=== PATIENT | male | born 1945 | race Caucasian/White ===

== ENCOUNTER → 2016-10-30 | Outpatient (REF) | payer MEDICARE, OTHER ==
[2016-10-30 14:03] LABS: MEAN CORPUSCULAR HEMOGLOBIN 29.1 pg (27.0-33.0); MEAN CORPUSCULAR HGB CONC 34.3 g/dl (32.0-36.5); MEAN CORPUSCULAR VOLUME 84.8 fl (80.0-96.0); RED CELL DISTRIBUTION WIDTH 12.5 % (11.5-14.5); WHITE BLOOD COUNT 4.8 K/mm3 (4.0-10.0)
[2016-10-30 14:19] LABS: ALBUMIN 3.9 GM/DL (3.2-5.2); ALKALINE PHOSPHATASE 86 U/L (45-117); ALT/SGPT 25 U/L (12-78); ANION GAP 7 MEQ/L (8-16); AST/SGOT 20 U/L (15-37); BILIRUBIN,TOTAL 0.6 MG/DL (0.2-1.0); BLOOD UREA NITROGEN 18 MG/DL (7-18); CALCIUM LEVEL 9.3 MG/DL (8.8-10.2); CARBON DIOXIDE LEVEL 30 MEQ/L (21-32); CHLORIDE LEVEL 104 MEQ/L (98-107); CHOLESTEROL LEVEL 162 MG/DL (<200); CREATININE FOR GFR 0.98 MG/DL (0.70-1.30); GLOMERULAR FILTRATION RATE > 60.0 (>42); GLUCOSE, FASTING 103 MG/DL (83-110); POTASSIUM SERUM 4.6 MEQ/L (3.5-5.1); SODIUM LEVEL 141 MEQ/L (136-145); TOTAL PROTEIN 6.9 GM/DL (6.4-8.2); TRIGLYCERIDES LEVEL 100 MG/DL (<150)
== END ==
LOC: M LABDRAW1 12:26
PROVIDERS: ATTEND Internal Medicine
DX: R73.01 Impaired fasting glucose (principal); I10 Essential (primary) hypertension; E78.00 Pure hypercholesterolemia, unspecified

== ENCOUNTER → 2018-11-17 | Outpatient (CLI) | payer MEDICARE, OTHER ==
[2018-11-17 08:59] LABS: HEMATOCRIT 44.7 % (42.0-52.0); MEAN CORPUSCULAR HEMOGLOBIN 28.9 pg (27.0-33.0); MEAN CORPUSCULAR HGB CONC 33.6 g/dl (32.0-36.5); MEAN CORPUSCULAR VOLUME 86.1 fl (80.0-96.0); PLATELET COUNT, AUTOMATED 248 10^3/uL (150-450); RED BLOOD COUNT 5.19 10^6/uL (4.30-6.10); WHITE BLOOD COUNT 6.3 10^3/uL (4.0-10.0)
[2018-11-17 09:29] LABS: ALT/SGPT 22 U/L (12-78); BILIRUBIN,TOTAL 0.8 MG/DL (0.2-1.0); BLOOD UREA NITROGEN 17 MG/DL (7-18); CALCIUM LEVEL 9.9 MG/DL (8.8-10.2); CARBON DIOXIDE LEVEL 30 MEQ/L (21-32); CHLORIDE LEVEL 106 MEQ/L (98-107); CHOLESTEROL LEVEL 163 MG/DL (<200); CHOLESTEROL RISK RATIO 3.468 (<5); GLOMERULAR FILTRATION RATE > 60.0 (>42); GLUCOSE, FASTING 109 MG/DL (70-100); HDL CHOLESTEROL 47 MG/DL (>40); LDL CHOLESTEROL 96 MG/DL (<100); MAGNESIUM LEVEL 2.2 MG/DL (1.8-2.4); NON-HDL-C 116 MG/DL; POTASSIUM SERUM 5.2 MEQ/L (3.5-5.1); SODIUM LEVEL 141 MEQ/L (136-145); TOTAL PROTEIN 7.2 GM/DL (6.4-8.2); TRIGLYCERIDES LEVEL 101 MG/DL (<150)
[2018-11-17 15:01] LABS: HEMOGLOBIN A1c 5.9 %
== END ==
LOC: M WUC 08:08
PROVIDERS: ATTEND Internal Medicine
DX: I10 Essential (primary) hypertension (principal); E78.00 Pure hypercholesterolemia, unspecified; R73.01 Impaired fasting glucose; R74.8 Abnormal levels of other serum enzymes; G47.33 Obstructive sleep apnea (adult) (pediatric)

== ENCOUNTER → 2019-10-31 | Outpatient (CLI) | payer MEDICARE, OTHER ==
[2019-10-31 13:56] LABS: HEMATOCRIT 41.3 % (42.0-52.0); HEMOGLOBIN 13.9 g/dl (13.5-17.5); MEAN CORPUSCULAR HEMOGLOBIN 29.2 pg (27.0-33.0); MEAN CORPUSCULAR HGB CONC 33.7 g/dl (32.0-36.5); MEAN CORPUSCULAR VOLUME 86.8 fl (80.0-96.0); PLATELET COUNT, AUTOMATED 246 10^3/uL (150-450); RED BLOOD COUNT 4.76 10^6/uL (4.30-6.10); WHITE BLOOD COUNT 6.6 10^3/uL (4.0-10.0)
[2019-10-31 14:15] LABS: BLOOD UREA NITROGEN 18 MG/DL (7-18); CALCIUM LEVEL 9.3 MG/DL (8.8-10.2); CARBON DIOXIDE LEVEL 29 MEQ/L (21-32); CHLORIDE LEVEL 104 MEQ/L (98-107); CREATININE FOR GFR 0.96 MG/DL (0.70-1.30); GLOMERULAR FILTRATION RATE > 60.0 (>42); GLUCOSE, FASTING 77 MG/DL (70-100); POTASSIUM SERUM 4.7 MEQ/L (3.5-5.1); SODIUM LEVEL 139 MEQ/L (136-145)
== END ==
LOC: M WUC 10:10
PROVIDERS: ATTEND Physician Assistant
DX: I48.19 Other persistent atrial fibrillation (principal); Z79.899 Other long term (current) drug therapy

== ENCOUNTER → 2020-05-03 | Outpatient (CLI) | payer MEDICARE, OTHER ==
[2020-05-03 11:30] LABS: BASO % 0.3 % (0.0-1.0); HEMATOCRIT 44.7 % (42.0-52.0); HEMOGLOBIN 14.7 g/dl (13.5-17.5); LYMPH # 2.1 10^3/uL (1.5-5.0); LYMPH % 32.9 % (24.0-44.0); MEAN CORPUSCULAR HEMOGLOBIN 28.6 pg (27.0-33.0); MEAN CORPUSCULAR HGB CONC 32.9 g/dl (32.0-36.5); MONO # 0.7 10^3/uL (0.0-0.8); MONO % 10.1 % (2.0-8.0); NEUTROPHILS # 3.6 10^3/uL (1.5-8.5); NEUTROPHILS % 56.4 % (36.0-66.0); PLATELET COUNT, AUTOMATED 251 10^3/uL (150-450); RED BLOOD COUNT 5.14 10^6/uL (4.30-6.10); WHITE BLOOD COUNT 6.4 10^3/uL (4.0-10.0)
[2020-05-03 12:14] LABS: ALT/SGPT 25 U/L (12-78); BILIRUBIN,TOTAL 0.8 MG/DL (0.2-1.0); BLOOD UREA NITROGEN 20 MG/DL (7-18); CALCIUM LEVEL 9.7 MG/DL (8.8-10.2); CARBON DIOXIDE LEVEL 31 MEQ/L (21-32); CHLORIDE LEVEL 103 MEQ/L (98-107); CHOLESTEROL LEVEL 175 MG/DL (<200); CHOLESTEROL RISK RATIO 3.888 (<5); CREATININE FOR GFR 1.11 MG/DL (0.70-1.30); GLOMERULAR FILTRATION RATE > 60.0 (>42); GLUCOSE, FASTING 111 MG/DL (70-100); HDL CHOLESTEROL 45 MG/DL (>40); LDL CHOLESTEROL 104 MG/DL (<100); NON-HDL-C 130 MG/DL; POTASSIUM SERUM 4.6 MEQ/L (3.5-5.1); SODIUM LEVEL 139 MEQ/L (136-145); TOTAL PROTEIN 7.3 GM/DL (6.4-8.2); TRIGLYCERIDES LEVEL 129 MG/DL (<150)
== END ==
LOC: M WUC 08:10
PROVIDERS: ATTEND Physician Assistant
DX: I10 Essential (primary) hypertension (principal)

== ENCOUNTER → 2020-07-09 | Outpatient (REF) | payer MEDICARE, OTHER ==
[2020-07-09 15:04] LABS: APPEARANCE, URINE CLEAR (CLEAR); BACTERIA, URINE AUTO NEGATIVE (NEGATIVE); BILIRUBIN, URINE AUTO NEGATIVE (NEGATIVE); BLOOD, URINE BLOOD NEGATIVE (NEGATIVE); COLOR, URINE YELLOW (YELLOW); GLUCOSE, URINE (UA) AUTO NEGATIVE (NEGATIVE); KETONE, URINE AUTO NEGATIVE (NEGATIVE); LEUKOCYTE ESTERASE, URINE AUTO NEGATIVE (NEGATIVE); NITRITE, URINE AUTO NEGATIVE (NEGATIVE); PROTEIN, URINE AUTO NEGATIVE (NEGATIVE); RBC, URINE AUTO 0 /HPF (0-3); SPECIFIC GRAVITY URINE AUTO 1.014 (1.002-1.035); SQUAMOUS EPITHELIAL CELL UR AU 0 /HPF (0-6); UROBILINOGEN, URINE AUTO 0.2 mg/dL (0.0-2.0); WBC, URINE AUTO 0 /HPF (0-3)
== END ==
LOC: M SFHCPLAZ 13:44
PROVIDERS: ATTEND Internal Medicine
DX: R31.9 Hematuria, unspecified (principal); Z11.59 Encounter for screening for other viral diseases
CPT/HCPCS: 36415; 81001; G0463; G0472

== ENCOUNTER → 2021-07-02 | Outpatient (CLI) | payer MEDICARE, OTHER, BC ==
[2021-07-02 11:31] LABS: BASO % 0.1 % (0.0-1.0); HEMATOCRIT 42.8 % (42.0-52.0); HEMOGLOBIN 14.3 g/dl (13.5-17.5); LYMPH # 2.2 10^3/uL (1.5-5.0); LYMPH % 32.3 % (24.0-44.0); MEAN CORPUSCULAR HEMOGLOBIN 28.9 pg (27.0-33.0); MEAN CORPUSCULAR HGB CONC 33.4 g/dl (32.0-36.5); MEAN CORPUSCULAR VOLUME 86.5 fl (80.0-96.0); MONO # 0.7 10^3/uL (0.0-0.8); MONO % 9.9 % (2.0-8.0); NEUTROPHILS # 3.9 10^3/uL (1.5-8.5); NEUTROPHILS % 57.4 % (36.0-66.0); PLATELET COUNT, AUTOMATED 249 10^3/uL (150-450); RED BLOOD COUNT 4.95 10^6/uL (4.30-6.10); WHITE BLOOD COUNT 6.8 10^3/uL (4.0-10.0)
[2021-07-02 12:00] LABS: HEMOGLOBIN A1c 5.7 %
[2021-07-02 12:05] LABS: ALBUMIN 3.8 GM/DL (3.2-5.2); ALT/SGPT 25 U/L (12-78); BILIRUBIN,TOTAL 0.8 MG/DL (0.2-1.0); BLOOD UREA NITROGEN 19 MG/DL (7-18); CALCIUM LEVEL 9.8 MG/DL (8.8-10.2); CARBON DIOXIDE LEVEL 31 MEQ/L (21-32); CHLORIDE LEVEL 105 MEQ/L (98-107); CHOLESTEROL LEVEL 160 MG/DL (<200); CHOLESTEROL RISK RATIO 4.444 (<5); CREATININE FOR GFR 0.91 MG/DL (0.70-1.30); GLOMERULAR FILTRATION RATE > 60.0 (>42); GLUCOSE, FASTING 106 MG/DL (70-100); HDL CHOLESTEROL 36 MG/DL (>40); LDL CHOLESTEROL 93 MG/DL (<100); MAGNESIUM LEVEL 2.1 MG/DL (1.8-2.4); NON-HDL-C 124 MG/DL; POTASSIUM SERUM 4.6 MEQ/L (3.5-5.1); SODIUM LEVEL 141 MEQ/L (136-145); TOTAL PROTEIN 7.1 GM/DL (6.4-8.2); TRIGLYCERIDES LEVEL 153 MG/DL (<150)
== END ==
LOC: M WUC 08:34
PROVIDERS: ATTEND Internal Medicine
DX: E78.00 Pure hypercholesterolemia, unspecified (principal); I10 Essential (primary) hypertension; G47.33 Obstructive sleep apnea (adult) (pediatric)

== ENCOUNTER → 2022-05-22 | Outpatient (CLI) | payer MEDICARE, OTHER, BC | LOC: M WUC 13:26 | PROVIDERS: ATTEND Physician Assistant | DX: S90.31XA Contusion of right foot, initial encounter (principal); W18.30XA Fall on same level, unspecified, initial encounter; Y92.009 Unspecified place in unspecified non-institutional (private) residence as the place of occurrence of the external cause ==

== ENCOUNTER → 2022-07-10 | Outpatient (CLI) | payer MEDICARE, BC, OTHER ==
[2022-07-10 11:09] LABS: HEMOGLOBIN 14.8 g/dl (13.5-17.5); MEAN CORPUSCULAR HEMOGLOBIN 28.6 pg (27.0-33.0); MEAN CORPUSCULAR HGB CONC 32.9 g/dl (32.0-36.5); PLATELET COUNT, AUTOMATED 237 10^3/uL (150-450); RED BLOOD COUNT 5.17 10^6/uL (4.30-6.10); WHITE BLOOD COUNT 6.5 10^3/uL (4.0-10.0)
[2022-07-10 11:26] LABS: HEMOGLOBIN A1c 5.7 % (4.0-6.0)
[2022-07-10 11:37] LABS: CREATININE, URINE 101.5 MG/DL; MALB URINE SIEMENS < 3.0 MG/L; MAU/CREAT RATIO 2.9 MCG/MG (0.0-30.0)
[2022-07-10 11:46] LABS: ALBUMIN 3.9 G/DL (3.2-5.2); ALKALINE PHOSPHATASE 97 U/L (46-116); ALT/SGPT 19 U/L (7.0-40); AST/SGOT 18 U/L (<34); BILIRUBIN,TOTAL 0.9 MG/DL (0.3-1.2); BLOOD UREA NITROGEN 19 MG/DL (9-23); C REACTIVE PROTEIN QUANTITATIV < 0.40 MG/DL (<1.0); CALCIUM LEVEL 9.6 MG/DL (8.3-10.6); CARBON DIOXIDE LEVEL 29 MMOL/L (20-31); CHLORIDE LEVEL 104 MMOL/L (98-107); CHOLESTEROL LEVEL 159 MG/DL (<200); CHOLESTEROL RISK RATIO 3.59 (<5); CREATININE FOR GFR 1.01 MG/DL (0.70-1.30); GLOMERULAR FILTRATION RATE > 60.0 (>42); GLUCOSE, FASTING 104 MG/DL (74-106); HDL CHOLESTEROL 44.2 MG/DL (>40); LDL CHOLESTEROL 90.2 MG/DL (<100); NON-HDL-C 114.8 MG/DL; POTASSIUM SERUM 5.5 MMOL/L (3.5-5.1); SODIUM LEVEL 140 MMOL/L (136-145); TRIGLYCERIDES LEVEL 123 MG/DL (<150)
[2022-07-10 11:47] LABS: FREE T4 0.92 NG/DL (0.89-1.76); THYROID STIMULATING HORMONE 1.405 uIU/ML (0.55-4.78)
[2022-07-10 11:48] LABS: TOTAL 25(OH) VITAMIN D 29.1 NG/ML (20.0-100.0)
[2022-07-10 11:49] LABS: VITAMIN B12 LEVEL 754 PG/ML (211-911)
== END ==
LOC: M PLALAB 08:44
PROVIDERS: ATTEND Internal Medicine Hematology
DX: R73.01 Impaired fasting glucose (principal); Z86.79 Personal history of other diseases of the circulatory system; Z12.5 Encounter for screening for malignant neoplasm of prostate
CPT/HCPCS: 36415; 80053; 80061; 82043; 82306; 82607; 83036; 83525; 83880; 84439; 84443; 85027; 86140; G0103

== ENCOUNTER → 2022-07-14 | Outpatient (CLI) | payer MEDICARE, BC, OTHER ==
[2022-07-14 13:51] LABS: BLOOD UREA NITROGEN 22 MG/DL (9-23); CALCIUM LEVEL 9.2 MG/DL (8.3-10.6); CARBON DIOXIDE LEVEL 28 MMOL/L (20-31); CHLORIDE LEVEL 105 MMOL/L (98-107); CREATININE FOR GFR 1.04 MG/DL (0.70-1.30); GLOMERULAR FILTRATION RATE > 60.0 (>42); GLUCOSE, FASTING 90 MG/DL (74-106); POTASSIUM SERUM 4.5 MMOL/L (3.5-5.1); SODIUM LEVEL 139 MMOL/L (136-145)
== END ==
LOC: M PLALAB 10:03
PROVIDERS: ATTEND Internal Medicine Hematology
DX: E87.5 Hyperkalemia (principal)

== ENCOUNTER → 2022-11-13 | Outpatient (CLI) | payer MEDICARE, BC, OTHER | LOC: M PLAIMG 11:52 → M PLALAB 11:52 | PROVIDERS: ATTEND Physician Assistant Medical | DX: N20.0 Calculus of kidney (principal); R06.6 Hiccough ==

== ENCOUNTER → 2023-01-08 | Outpatient (REF) | payer MEDICARE, BC, OTHER ==
[2023-01-08 11:50] LABS: CHOLESTEROL RISK RATIO 4.09 (<5); HDL CHOLESTEROL 45.4 MG/DL (>40); LDL CHOLESTEROL 121.6 MG/DL (<100); NON-HDL-C 140.6 MG/DL
[2023-01-09 04:12] LABS: LDL DIRECT 118 mg/dL (0-99)
== END ==
LOC: M LABWUC 10:10
PROVIDERS: ATTEND Internal Medicine Cardiovascular Disease
DX: E78.2 Mixed hyperlipidemia (principal); I48.91 Unspecified atrial fibrillation; I10 Essential (primary) hypertension

== ENCOUNTER 2023-05-13 06:17 | Day surgery (SDC) | payer MEDICARE, BC ==
[~2023-05-13] VITALS: Ht 185.4 cm; Wt 101.3 kg
[~2023-05-13 06:17] MED LIST: BIMA01SOL OU; BRIM5DRO4 OU; ELIQ5TAB PO; LOSA50TA28 PO; OMEP-173 PO
[2023-05-13] MEDS: LIDOCAINE 3.5 % 1ML OPHTH TOPICAL GEL OU ONE (06:41)
[2023-05-13] MEDS ORDERED: MIDAZOLAM INJ 2MG/2ML VIAL As Ordered ONE (06:51)
[2023-05-13] MEDS ORDERED: fentaNYL 100 MCG/2 ML INJECTION As Ordered ONE (06:51)
[2023-05-13] MEDS ORDERED: POVIDONE-IODINE 5% OPHTH PREP SOL 30ML As Ordered ONE (07:20)
[2023-05-13] MEDS: LIDOCAINE 1% SDV 5ML VIAL As Ordered ONE (07:39)
[2023-05-13] MEDS: mitoMYcin 0.2 MG/VIAL KIT FOR OPHTHALMIC USE As Ordered ONE (07:39)
[2023-05-13] MEDS: TOBRADEX OPHTH OINT 3.5 GM As Ordered ONE (07:39)
[2023-05-13 07:45] VITALS: BP 146/81; TEMP 97; O2SAT 100
== END 2023-05-13 07:59 | disposition home or self-care (01) ==
LOC: M SDC 06:17
PROVIDERS: ATTEND Ophthalmology
DX: H40.1111 Primary open-angle glaucoma, right eye, mild stage (principal); I48.91 Unspecified atrial fibrillation; G47.30 Sleep apnea, unspecified; Z79.899 Other long term (current) drug therapy
CPT/HCPCS: 66183; C1783; J2250; J3010; J7315

== ENCOUNTER → 2023-05-21 | Outpatient (CLI) | payer MEDICARE, BC ==
[2023-05-21 12:03] LABS: BASO % 0.4 % (0.0-1.0); HEMATOCRIT 44.8 % (42.0-52.0); HEMOGLOBIN 14.8 g/dl (13.5-17.5); LYMPH % 25.4 % (24.0-44.0); MEAN CORPUSCULAR HEMOGLOBIN 28.8 pg (27.0-33.0); MEAN CORPUSCULAR VOLUME 87.3 fl (80.0-96.0); MONO # 0.6 10^3/uL (0.0-0.8); MONO % 8.3 % (2.0-8.0); NEUTROPHILS # 5.1 10^3/uL (1.5-8.5); NEUTROPHILS % 65.8 % (36.0-66.0); PLATELET COUNT, AUTOMATED 230 10^3/uL (150-450); RED BLOOD COUNT 5.13 10^6/uL (4.30-6.10); WHITE BLOOD COUNT 7.7 10^3/uL (4.0-10.0)
[2023-05-21 12:34] LABS: BLOOD UREA NITROGEN 22 MG/DL (9-23); CALCIUM LEVEL 9.6 MG/DL (8.3-10.6); CARBON DIOXIDE LEVEL 32 MMOL/L (20-31); CHLORIDE LEVEL 106 MMOL/L (98-107); CREATININE FOR GFR 0.91 MG/DL (0.70-1.30); GLOMERULAR FILTRATION RATE > 60.0 (>42); GLUCOSE, FASTING 79 MG/DL (74-106); POTASSIUM SERUM 4.1 MMOL/L (3.5-5.1); SODIUM LEVEL 140 MMOL/L (136-145)
== END ==
LOC: M WUC 08:49
PROVIDERS: ATTEND Internal Medicine Cardiovascular Disease
DX: I48.19 Other persistent atrial fibrillation (principal); Z79.899 Other long term (current) drug therapy

== ENCOUNTER → 2023-07-13 | Outpatient (CLI) | payer MEDICARE, BC ==
[2023-07-13 11:13] LABS: BASO % 0.3 % (0.0-1.0); HEMATOCRIT 42.6 % (42.0-52.0); HEMOGLOBIN 14.3 g/dl (13.5-17.5); LYMPH % 21.1 % (24.0-44.0); MEAN CORPUSCULAR HEMOGLOBIN 29.4 pg (27.0-33.0); MEAN CORPUSCULAR HGB CONC 33.6 g/dl (32.0-36.5); MEAN CORPUSCULAR VOLUME 87.5 fl (80.0-96.0); MONO # 0.7 10^3/uL (0.0-0.8); MONO % 7.4 % (2.0-8.0); NEUTROPHILS # 6.6 10^3/uL (1.5-8.5); NEUTROPHILS % 70.9 % (36.0-66.0); PLATELET COUNT, AUTOMATED 245 10^3/uL (150-450); RED BLOOD COUNT 4.87 10^6/uL (4.30-6.10); WHITE BLOOD COUNT 9.3 10^3/uL (4.0-10.0)
[2023-07-13 11:18] LABS: C REACTIVE PROTEIN QUANTITATIV < 0.40 MG/DL (<1.0)
[2023-07-13 11:35] LABS: CREATININE, URINE 113.2 MG/DL
[2023-07-13 11:36] LABS: MALB URINE SIEMENS < 3.0 MG/L; MAU/CREAT RATIO 2.6 MCG/MG (0.0-30.0)
[2023-07-13 11:44] LABS: HEMOGLOBIN A1c 5.6 % (4.0-6.0)
[2023-07-13 11:47] LABS: ALBUMIN 3.8 G/DL (3.2-5.2); ALKALINE PHOSPHATASE 88 U/L (46-116); ALT/SGPT 33 U/L (7.0-40); AST/SGOT 21 U/L (<34); BILIRUBIN,TOTAL 0.8 MG/DL (0.3-1.2); BLOOD UREA NITROGEN 24 MG/DL (9-23); CALCIUM LEVEL 9.6 MG/DL (8.3-10.6); CARBON DIOXIDE LEVEL 30 MMOL/L (20-31); CHLORIDE LEVEL 104 MMOL/L (98-107); CHOLESTEROL LEVEL 164 MG/DL (<200); CHOLESTEROL RISK RATIO 3.34 (<5); CREATININE FOR GFR 0.96 MG/DL (0.70-1.30); FREE T4 1.11 NG/DL (0.89-1.76); GLOMERULAR FILTRATION RATE > 60.0 (>42); GLUCOSE, FASTING 111 MG/DL (74-106); HDL CHOLESTEROL 49.1 MG/DL (>40); LDL CHOLESTEROL 97.9 MG/DL (<100); NON-HDL-C 114.9 MG/DL; POTASSIUM SERUM 4.3 MMOL/L (3.5-5.1); PSA SCREENING 0.38 NG/ML (< 4.00); SODIUM LEVEL 139 MMOL/L (136-145); THYROID STIMULATING HORMONE 1.576 uIU/ML (0.55-4.78); TOTAL 25(OH) VITAMIN D 28.6 NG/ML (20.0-100.0); TOTAL PROTEIN 6.7 G/DL (5.7-8.2); TRIGLYCERIDES LEVEL 85 MG/DL (<150); VITAMIN B12 LEVEL 601 PG/ML (211-911)
== END ==
LOC: M WUC 08:02
PROVIDERS: ATTEND Internal Medicine Hematology
DX: R73.01 Impaired fasting glucose (principal); Z12.5 Encounter for screening for malignant neoplasm of prostate; E07.9 Disorder of thyroid, unspecified; E78.00 Pure hypercholesterolemia, unspecified
CPT/HCPCS: 36415; 80053; 80061; 82043; 82306; 82607; 83036; 83525; 84439; 84443; 85025; 86140; G0103

== ENCOUNTER 2023-07-27 07:46 | Day surgery (SDC) | payer MEDICARE, BC ==
[~2023-07-27] VITALS: Ht 182.9 cm; Wt 100.7 kg
[2023-07-27] MEDS: LIDOCAINE 3.5 % 1ML OPHTH TOPICAL GEL OU ONE (08:00)
[2023-07-27] MEDS ORDERED: ACET650T15 PO (08:33)
[2023-07-27] MEDS ORDERED: CIPR0.3S37 (08:33)
[2023-07-27] MEDS ORDERED: MIDAZOLAM INJ 2MG/2ML VIAL As Ordered ONE (09:53)
[2023-07-27] MEDS ORDERED: fentaNYL 100 MCG/2 ML INJECTION As Ordered ONE (09:54)
[2023-07-27] MEDS: mitoMYcin 0.2 MG/VIAL KIT FOR OPHTHALMIC USE As Ordered ONE (10:38)
[2023-07-27] MEDS: TOBRADEX OPHTH OINT 3.5 GM As Ordered ONE (10:39)
[2023-07-27] MEDS: LIDOCAINE 1% SDV 5ML VIAL As Ordered ONE (10:39)
[2023-07-27 10:50] VITALS: BP 124/71; TEMP 97.2; O2SAT 98
== END 2023-07-27 11:14 | disposition home or self-care (01) ==
LOC: M SDC 07:46
PROVIDERS: ATTEND Ophthalmology
DX: H40.10X0 Unspecified open-angle glaucoma, stage unspecified (principal); I48.91 Unspecified atrial fibrillation; G47.30 Sleep apnea, unspecified; K21.9 Gastro-esophageal reflux disease without esophagitis; Z79.01 Long term (current) use of anticoagulants; Z79.899 Other long term (current) drug therapy
CPT/HCPCS: 66183; C1783; J2250; J3010; J7315

== ENCOUNTER → 2024-01-20 | Outpatient (CLI) | payer MEDICARE, BC ==
[~2024-01-20] MED LIST changes: +ACET650T15 PO; +CIPR0.3S37
[2024-01-20 14:04] LABS: BASO % 0.4 % (0.0-1.0); HEMATOCRIT 43.4 % (42.0-52.0); HEMOGLOBIN 14.3 g/dl (13.5-17.5); LYMPH # 2.2 10^3/uL (1.5-5.0); LYMPH % 27.6 % (24.0-44.0); MEAN CORPUSCULAR HEMOGLOBIN 28.4 pg (27.0-33.0); MEAN CORPUSCULAR HGB CONC 32.9 g/dl (32.0-36.5); MEAN CORPUSCULAR VOLUME 86.1 fl (80.0-96.0); MONO # 0.8 10^3/uL (0.0-0.8); MONO % 10.3 % (2.0-8.0); NEUTROPHILS # 4.8 10^3/uL (1.5-8.5); NEUTROPHILS % 61.4 % (36.0-66.0); PLATELET COUNT, AUTOMATED 251 10^3/uL (150-450); RED BLOOD COUNT 5.04 10^6/uL (4.30-6.10); WHITE BLOOD COUNT 7.8 10^3/uL (4.0-10.0)
[2024-01-20 14:35] LABS: BLOOD UREA NITROGEN 21 MG/DL (9-23); CALCIUM LEVEL 9.9 MG/DL (8.3-10.6); CARBON DIOXIDE LEVEL 29 MMOL/L (20-31); CHLORIDE LEVEL 104 MMOL/L (98-107); CREATININE FOR GFR 0.93 MG/DL (0.70-1.30); GLOMERULAR FILTRATION RATE > 60.0 (>42); GLUCOSE, FASTING 57 MG/DL (74-106); POTASSIUM SERUM 4.5 MMOL/L (3.5-5.1); SODIUM LEVEL 138 MMOL/L (136-145)
== END ==
LOC: M WUC 10:46
PROVIDERS: ATTEND Internal Medicine Cardiovascular Disease
DX: I48.19 Other persistent atrial fibrillation (principal); I50.9 Heart failure, unspecified

== ENCOUNTER → 2024-10-25 | Outpatient (CLI) | payer MEDICARE, BC ==
[~2024-10-25] MED LIST changes: +ACET-1515 PO; -ACET650T15 PO
[2024-10-25 13:02] LABS: CALCIUM LEVEL 9.9 MG/DL (8.3-10.6); CARBON DIOXIDE LEVEL 29.0 MMOL/L (20-31); CHLORIDE LEVEL 104.0 MMOL/L (98-107); CREATININE FOR GFR 0.9 MG/DL (0.70-1.30); GLOMERULAR FILTRATION RATE 86.9 (>42); POTASSIUM SERUM 4.7 MMOL/L (3.5-5.1); SODIUM LEVEL 141.0 MMOL/L (136-145)
== END ==
LOC: M WUC 10:23
PROVIDERS: ATTEND Internal Medicine Cardiovascular Disease
DX: I50.9 Heart failure, unspecified (principal)

== ENCOUNTER → 2024-12-20 | Outpatient (REF) | payer MEDICARE, BC | LOC: M SFHCPLAZ 15:04 | PROVIDERS: ATTEND Family Medicine | DX: Z53.9 Procedure and treatment not carried out, unspecified reason (principal) ==

== ENCOUNTER → 2024-12-22 | Outpatient (CLI) | payer MEDICARE, BC ==
[2024-12-22 14:35] LABS: PLATELET COUNT, AUTOMATED 265 10^3/uL (150-450)
[2024-12-22 14:59] LABS: CREATININE, URINE 42.4 MG/DL; MALB URINE SIEMENS < 3.0 MG/L
[2024-12-22 15:00] LABS: ALT/SGPT 17.0 U/L (7.0-40); AST/SGOT 19.0 U/L (<34); CALCIUM LEVEL 9.8 MG/DL (8.3-10.6); CARBON DIOXIDE LEVEL 27.0 MMOL/L (20-31); CHLORIDE LEVEL 105.0 MMOL/L (98-107); CHOLESTEROL LEVEL 161.0 MG/DL (<200); CHOLESTEROL RISK RATIO 3.63 (<5); CREATININE FOR GFR 0.94 MG/DL (0.70-1.30); GLOMERULAR FILTRATION RATE 82.0 (>35); LDL CHOLESTEROL 99.3 MG/DL (<100); NON-HDL-C 116.7 MG/DL; POTASSIUM SERUM 4.5 MMOL/L (3.5-5.1); SODIUM LEVEL 142.0 MMOL/L (136-145); TRIGLYCERIDES LEVEL 87.0 MG/DL (<150)
== END ==
LOC: M PLALAB 09:53
PROVIDERS: ATTEND Family Medicine
DX: I10 Essential (primary) hypertension (principal); R74.8 Abnormal levels of other serum enzymes; E78.00 Pure hypercholesterolemia, unspecified